=== PATIENT | female | born 1985 | race Caucasian/White ===

== ENCOUNTER → 2021-01-23 08:37 | Outpatient (BNVA) | payer MEDICAID, SELFPAY | PROVIDERS: Visit Provider Internal Medicine | DX: R76.8 Other specified abnormal immunological findings in serum (principal); M25.50 Pain in unspecified joint; R53.83 Other fatigue; Z11.59 Encounter for screening for other viral diseases; Z79.899 Other long term (current) drug therapy; M35.00 Sjogren syndrome, unspecified; F17.210 Nicotine dependence, cigarettes, uncomplicated | CPT/HCPCS: 36415; 81003; 82306; 82550; 82728; 83540; 83735; 84100; 84443; 84550; 85025; 86140; 86704; 86803; 87340; 87806; 99204 ==

== ENCOUNTER → 2021-03-26 13:37 | Outpatient (BNVA) | payer MEDICAID, SELFPAY | PROVIDERS: Visit Provider Internal Medicine | DX: R76.8 Other specified abnormal immunological findings in serum (principal); M87.051 Idiopathic aseptic necrosis of right femur; R53.83 Other fatigue; M25.50 Pain in unspecified joint; F17.210 Nicotine dependence, cigarettes, uncomplicated | CPT/HCPCS: 99214 ==